=== PATIENT | female | born 1995 ===

== ENCOUNTER 2018-07-10 01:08 | Emergency (ER) | payer MEDICAID, OTHER ==
[2018-07-10 01:16] VITALS: BMI 20.5
[2018-07-10 01:41] VITALS: O2SAT 99
[2018-07-10] MEDS ORDERED: Sodium Chloride 0.9% 1,000 ML IV STA (03:09)
[2018-07-10 03:11] LABS: BASO # 0.01 K/mm3 (0.0-2.0); BASO % 0.2 % (0.0-3.0); EOS # 0.1 (0.0-0.7); EOS % 0.8 % (1.5-5.0); GRAN # 3.75 (1.4-6.5); GRAN % 59.2 % (50.0-68.0); HEMOGLOBIN 11.9 g/dL (12.0-16.0); LYMPH # 2.1 (1.2-3.4); MEAN CELL VOLUME 90.1 fl (80.0-105.0); MEAN CORPUSCULAR HEMOGLOBIN 30.9 pg (25.0-35.0); MEAN CORPUSCULAR HGB CONC 34.3 g/dl (31.0-37.0); MONO # 0.4 (0.1-0.6); MONO % 6.8 % (1.0-6.0); RBC 3.85 10^6/uL (3.5-6.1); RED CELL DISTRIBUTION WIDTH 12.5 % (11.5-14.5); WHITE BLOOD COUNT 6.3 10^3/ul (4.5-11.0)
--- NOTE | 2018-07-10 03:13 | ED PDOC ---
Arrival/HPI <Karson Crowe - Last Filed: 07/10/18 05:52> - General Historian: Patient, Partner - History of Present Illness Time/Duration: < week (2-3 days) Symptom Onset: Gradual Symptom Course: Worsening Quality: Tightness, Cramping Severity Level: 7 <Nilay Campos - Last Filed: 07/10/18 07:13> - General Chief Complaint: Female Genitourinary Time Seen by Provider: 07/10/18 01:31 - History of Present Illness Narrative History of Present Illness (Text): 07/10/18 02:18 CC: Abdominal pain and vomiting HPI: Ms. Correa is a 23 year old female with a past medical history of anemia ( no history of transfusions) who presents stating she had a positive home test. Patient reports a 4 day history of vomiting yellow mucus, minimal appetite, headaches, fatigue and crampy abdominal pain. Patient denies vaginal bleeding, spotting, chest pain, shortness of breath, back pain, dysuria , changes in urinary or bowel habits. Patient does not know how far along in the she is or date of her last menstrual period. Denies taking any vitamins. Patient denies care to this point as she recently moved here from [place]. Patient admits to daily marijuana use. (Nilay Campos) Past Medical History - Provider Review Nursing Documentation Reviewed: Yes - Travel History Have you recently traveled outside [place] w/in the past 3 mons?: No - Infectious Disease Hx of Infectious Diseases: None - Psychiatric Hx Substance Use: No <Nilay Campos - Last Filed: 07/10/18 07:13> Family/Social History - Physician Review Nursing Documentation Reviewed: Yes Family/Social History: Hypertension (mom) Smoking Status: Never Smoked Hx Alcohol Use: No Hx Substance Use: No <Nilay Campos - Last Filed: 07/10/18 07:13> Allergies/Home Meds <Karson Crowe - Last Filed: 07/10/18 05:52> <Nilay Campos - Last Filed: 07/10/18 07:13> Allergies/Adverse Reactions: Allergies No Known Allergies Allergy (Verified 07/10/18 01:16) Home Medications: Home Meds Medication Instructions Recorded Confirmed No Known Home Med 07/10/18 07/10/18 Review of Systems - Review of Systems Constitutional: Fatigue Eyes: Normal ENT: Normal Respiratory: Normal Cardiovascular: Normal Gastrointestinal: Abdominal Pain, Nausea, Vomiting, Appetite Changes, Food Intolerance Musculoskeletal: Normal Skin: Normal Neurological: Headache, Dizziness. absent: Focal Weakness <Nilay Campos - Last Filed: 07/10/18 07:13> Physical Exam Vital Signs Reviewed: Yes Temperature: Afebrile Blood Pressure: Hypotensive Pulse: Regular Respiratory Rate: Normal Appearance: Positive for: Well-Appearing, Non-Toxic, Uncomfortable Pain Distress: Mild Mental Status: Positive for: Alert and Oriented X 3 - Systems Exam Head: Present: Atraumatic, Normocephalic Pupils: Present: PERRL Extroacular Muscles: Present: EOMI Conjunctiva: Present: Normal Mouth: Present: Moist Mucous Membranes Neck: Present: Normal Range of Motion Respiratory/Chest: Present: Clear to Auscultation, Good Air Exchange. No: Respiratory Distress, Accessory Muscle Use, Wheezes, Rales Cardiovascular: Present: Regular Rate and Rhythm, Normal S1, S2, Peripheal Pulses Present. No: Murmurs Abdomen: Present: Tenderness (mild in RLQ and LLQ). No: Distention, Normal Bowel Sounds (hyperactive), Peritoneal Signs, Rebound, Guarding, McBurney's Point Tender, Rovsing's Sign Present, Mass/Organomegaly Back: No: CVA Tenderness, Midline Tenderness, Paraspinal Tenderness Upper Extremity: Present: Normal Inspection Lower Extremity: Present: Normal Inspection. No: Edema, CALF TENDERNESS Neurological: Present: GCS=15, CN II-XII Intact, Speech Normal Skin: Present: Warm, Dry, Normal Color. No: Rashes Psychiatric: Present: Alert, Oriented x 3 <Nilay Campos - Last Filed: 07/10/18 07:13> Vital Signs Temp Pulse Resp BP Pulse Ox 07/10/18 06:47 72 16 95/61 L 99 07/10/18 01:09 98.4 F 91 H 18 99/69 L 99 Medical Decision Making <Karson Crowe - Last Filed: 07/10/18 05:52> <Nilay Campos - Last Filed: 07/10/18 07:13> ED Course and Treatment: 07/10/18 05:52 Patient Seen with Resident: In agreement with resident note which contains more details about the patient. Patient seen and evaluated with resident. Came up with plan and treatment together.. (Karson Crowe) 07/10/18 02:16 Impression: 23 year old female with positive test who presents with vomiting and abdominal pain. Plan: CBC CMP Type and Screen UA B-HCG Transvaginal U/S NS bolus Tylenol 650 mg 07/10/18 04:51 UA shows trace blood, protein and ketones. B-HCG 66,387, which may correlate to 12-16 weeks gestation. Discussed results with patient. Awaiting Transvaginal U/S results. Follow up- recommended outpatient with OBGYN as soon as possible for evaluation of and to initiate care. 07/10/18 06:45 Transvaginal U/S completed. Likely abdominal pain in early . Recommend patient follow up with OBGYN (Dr. Botello) within 3 days for care. 07/10/18 07:00 EXAM: US First Trimester, Transabdominal US , Transvaginal CLINICAL HISTORY: 23 years old, female; Pain; Other: Pelvic; Gestational age or lmp: Unsure; ; Additional info: + preg test at home TECHNIQUE: Real-time transabdominal and transvaginal obstetrical ultrasound of the maternal pelvis and a first trimester with image documentation. Transvaginal imaging was used for better evaluation of the fetus and adnexa. COMPARISON: No relevant prior studies available. FINDINGS: Gestation: Single live intrauterine gestation. heart rate of 155 beats per minute. [place]-rump length of 1.7 cm, correlating with gestational age of 8 weeks 1 day. Uterus/cervix: No subchorionic hemorrhage. Closed cervix. Ovaries: Normal ovaries. No adnexal masses. Free fluid: No significant free fluid. IMPRESSION: 1. Single live intrauterine gestation. Reviewed record and follow up instructions with patient and significant other. They expressed understanding to need to follow up with OBGYN. Patient hemodynamically stable and ready for discharge home. (Nilay Campos) - Lab Interpretations Lab Results: 07/10/18 02:50 07/10/18 02:50 Lab Results 07/10/18 03:15: Blood Type A POSITIVE, Antibody Screen Negative, BBK History Checked No verified bt 07/10/18 02:50: Beta HCG, Quant 84412.00 H 07/10/18 02:50: Sodium 139, Potassium 3.7, Chloride 104, Carbon Dioxide 23, Anion Gap 15, BUN 12, Creatinine 0.5 L, Est GFR ( Amer) > 60, Est GFR ( Non-Af Amer) > 60, Random Glucose 87, Calcium 9.5, Total Bilirubin 0.3, AST 18, ALT 17, Alkaline Phosphatase 47, Total Protein 7.0, Albumin 4.2, Globulin 2.8, Albumin/Globulin Ratio 1.5 07/10/18 02:50: WBC 6.3, RBC 3.85, Hgb 11.9 L, Hct 34.7 L, MCV 90.1, MCH 30.9, MCHC 34.3, RDW 12.5, Plt Count 236, MPV 9.0, Gran % 59.2, Lymph % (Auto) 33.0, [place] % (Auto) 6.8 H, Eos % (Auto) 0.8 L, Baso % (Auto) 0.2, Gran # 3.75, Lymph # (Auto) 2.1, [place] # (Auto) 0.4, Eos # (Auto) 0.1, Baso # (Auto) 0.01 07/10/18 01:50: Urine Color Yellow, Urine Appearance Clear, Urine pH 6.0, Ur Specific [place] >= 1.030, Urine Protein Trace H, Urine Glucose (UA) Negative, Urine Ketones Trace H, Urine Blood Trace-intact H, Urine Nitrate Negative, Urine Bilirubin Negative, Urine Urobilinogen 1.0 H, Ur Leukocyte Esterase Negative, Urine RBC 0 - 2, Urine WBC 0 - 2, Ur Epithelial Cells 3 - 4, Urine Bacteria Small, Urine Other Mucus 07/10/18 01:50: Urine HCG, Qual Positive - RAD Interpretation Radiology Orders: 07/10/18 02:15 OB TRANSVAGINAL [US] Stat - Medication Orders Current Medication Orders: Discontinued Medications Acetaminophen (Tylenol 325mg Tab) 650 mg PO STAT STA Stop: 07/10/18 02:16 Last Admin: 07/10/18 03:28 Dose: 650 mg Sodium Chloride (Sodium Chloride 0.9%) 1,000 mls @ 999 mls/hr IV .Q1H1M STA Stop: 07/10/18 04:09 Last Admin: 07/10/18 03:28 Dose: 999 mls/hr eMAR Start Stop Document 07/10/18 03:28 IT (Rec: 07/10/18 03:28 IT [id number]) Intravenous Solution Start Date 07/10/18 Start Time 03:28 - PA / TERMINAL WORKER / Resident Statement / has reviewed & agrees with the documentation as recorded. / has examined the patient and agrees with the treatment plan. <Karson Crowe - Last Filed: 07/10/18 05:52> Disposition/Present on Arrival <Karson Crowe - Last Filed: 07/10/18 05:52> - Present on Arrival Any Indicators Present on Arrival: No History of DVT/PE: No History of Uncontrolled Diabetes: No Urinary Catheter: No History of Decub. Ulcer: No History Surgical Site Infection Following: None - Disposition Have Diagnosis and Disposition been Completed?: Yes Disposition Time: 07:03 Patient Plan: Discharge <Nilay Campos - Last Filed: 07/10/18 07:13> - Disposition Diagnosis: Disposition: HOME/ ROUTINE Condition: IMPROVED Discharge Instructions (ExitCare): Medications and , Care, - The Third Month, - The Fourth Month Print Language: YORUBA Additional Instructions: Please follow up with Dr. Botello (OBGYN) within 3 days for care. Please continue to have proper fluid and food intake with full meals as tolerated. Should symptoms worsen, please return to nearest emergency department. VASU CORREA, thank you for letting us take care of you today. Your provider was Karson Crowe MD and you were treated for ABD PAIN. The emergency medical care you received today was directed at your acute symptoms. If you were prescribed any medication, please fill it and take as directed. It may take several days for your symptoms to resolve. Return to the Emergency Department if your symptoms worsen, do not improve, or if you have any other problems. Please contact your doctor or call one of the physicians/clinics you have been referred to that are listed on the Patient Visit Information form that is included in your discharge packet. Bring any paperwork you were given at discharge with you along with any medications you are taking to your follow up visit. Our treatment cannot replace ongoing medical care by a primary care provider outside of the emergency department. Thank you for allowing the [facility] team to be part of your care today. If you had an X-Ray or CT scan: A Radiologist will review the ED reading if any change in treatment is needed we will contact you. If you had a blood, urine, or wound culture: It will take several days for the results, if any change in treatment is needed we will contact you. If you had an STI test: It will take 48 hours for the results. Please call after 1 week if you have not heard back. Referrals: Osmar Botello DO [Staff Provider] - Follow up with primary Forms: [employer] (Danish)
[2018-07-10 03:19] LABS: ALB/GLOB RATIO 1.5 (1.1-1.8); ALBUMIN 4.2 g/dL (3.0-4.8); ALT/SGPT 17 U/L (7-56); AST/SGOT 18 U/L (14-36); BLOOD UREA NITROGEN 12 mg/dL (7-21); CALCIUM 9.5 mg/dL (8.4-10.5); GFR NON-AFRICAN AMERICAN > 60
[2018-07-10 03:30] LABS: URINE APPEARANCE CLEAR (CLEAR); URINE BILIRUBIN NEGATIVE (NEGATIVE); URINE BLOOD TRACE-INTACT (NEGATIVE); URINE COLOR YELLOW (YELLOW); URINE GLUCOSE (UA) NEGATIVE (NEGATIVE); URINE LEUKOCYTE ESTERASE NEGATIVE Leu/uL (NEGATIVE); URINE PROTEIN TRACE mg/dL (<30 mg/dL)
[2018-07-10 04:15] LABS: URINE BACTERIA SMALL (NEG); URINE RBC 0 - 2 /hpf (0-2); URINE WBC 0 - 2 /hpf (0-6)
[2018-07-10 06:47] VITALS: BP 95/61; PULSE 72
[2018-07-10 07:31] VITALS: RESP 18; TEMP 98.6
--- NOTE | 2018-07-12 10:08 | US ---
Date of service: 07/10/2018 PROCEDURE: OB Pelvic Ultrasound HISTORY: preg test at home COMPARISON: None available. TECHNIQUE: Transvaginal pelvic ultrasound was performed. FINDINGS: UTERUS: Single live intrauterine gestation. CRL measures 1.70 cm equivalent to 8 weeks and 1 day of gestational age. Yolk sac is identified. age (Ultrasound estimated): 8 weeks and 1 day Date of delivery (Ultrasound estimated) : 02/18/2019 Heart rate: 155 bpm. Margarita-gestational hemorrhage: None. Measures 10.0 x 5.8 x 6.9 cm. Normal in size and appearance. No fibroid or other mass lesion seen. CERVIX: Long and closed. No cervical abnormality seen. RIGHT OVARY: Measures 2.7 x 1.9 x 2.8 cm. No mass. Normal flow. LEFT OVARY: Measures 2.8 x 1.4 x 2.6 cm. No mass. Normal flow. FREE FLUID: None. OTHER FINDINGS: None. IMPRESSION: Single live intrauterine gestation with mean gestational age of 8 weeks and 1 day. Estimated date of delivery by ultrasound is 02/18/2019. A preliminary report was provided by [employer].
== END 2018-07-10 07:30 | disposition home or self-care (01) ==
LOC: ED 01:08
DX: O26.891 Other specified pregnancy related conditions, first trimester (principal); Z3A.08 8 weeks gestation of pregnancy
CPT/HCPCS: 76817; 80053; 81001; 84702; 84703; 85025; 86850; 86900; 99283; J7030

== ENCOUNTER 2018-07-29 15:19 | Emergency (ER) | payer MEDICAID, OTHER ==
[2018-07-29 15:19] VITALS: BMI 20.5
[2018-07-29 15:35] VITALS: TEMP 98.8
--- NOTE | 2018-07-29 16:05 | ED PDOC ---
Arrival/HPI - General Chief Complaint: Female Genitourinary Time Seen by Provider: 07/29/18 15:59 Historian: Patient - History of Present Illness Narrative History of Present Illness (Text): 07/29/18 16:04 23 year old female, with past medical history of anemia, with 10 weeks gestation, presents to the Emergency department complaining of vaginal bleeding since prior to arrival. Patient states she was shopping when she realized she was mildly bleeding prompting her to present to the Emergency department for medical evaluation. Patient informs associated mild abdominal pain but denies any other medical complaints. Patient denies any fever, chills, nausea, vomiting, diarrhea, chest pain, shortness of breath, neck pain, back pain, headache, dizziness or any other complaints. Patient states she is scheduled to see an OBGYN in a month and has not seen one in the past. Time/Duration: Prior to Arrival Symptom Onset: Gradual Symptom Course: Unchanged Activities at Onset: Light Context: Other (Shopping) Past Medical History - Provider Review Nursing Documentation Reviewed: Yes - Infectious Disease Hx of Infectious Diseases: None - Cardiac Hx Cardiac Disorders: No - Pulmonary Hx Respiratory Disorders: Yes Hx Asthma: Yes - Neurological Hx Neurological Disorder: No - HEENT Hx HEENT Disorder: No - Renal Hx Renal Disorder: No - Endocrine/Metabolic Hx Endocrine Disorders: No - Hematological/Oncological Hx Blood Disorders: Yes Hx Anemia: Yes - Integumentary Hx Dermatological Disorder: No - Musculoskeletal/Rheumatological Hx Musculoskeletal Disorders: No - Gastrointestinal Hx Gastrointestinal Disorders: No - Genitourinary/Gynecological Hx Genitourinary Disorders: No - Psychiatric Hx Psychophysiologic Disorder: Yes Hx Anxiety: Yes Hx Substance Use: No Family/Social History - Physician Review Nursing Documentation Reviewed: Yes Family/Social History: No Known Family HX Smoking Status: Never Smoked Hx Alcohol Use: No Hx Substance Use: No Allergies/Home Meds Allergies/Adverse Reactions: Allergies No Known Allergies Allergy (Verified 07/29/18 15:30) Home Medications: Home Meds Medication Instructions Recorded Confirmed No Known Home Med 07/10/18 07/29/18 Review of Systems - Physician Review All systems were reviewed & negative as marked: Yes - Review of Systems Constitutional: absent: Fevers Respiratory: absent: SOB, Cough Cardiovascular: absent: Chest Pain Gastrointestinal: absent: Abdominal Pain, Diarrhea, Nausea, Vomiting Genitourinary Female: Vaginal Bleeding. absent: Other Musculoskeletal: absent: Back Pain Neurological: absent: Headache, Dizziness Physical Exam Vital Signs Reviewed: Yes Vital Signs Temp Pulse Resp BP Pulse Ox 07/29/18 15:30 98.8 F 89 16 99/64 L 96 Temperature: Afebrile Blood Pressure: Hypotensive Pulse: Regular Respiratory Rate: Normal Appearance: Positive for: Well-Appearing, Non-Toxic, Comfortable Pain Distress: None Mental Status: Positive for: Alert and Oriented X 3 - Systems Exam Head: Present: Atraumatic, Normocephalic Pupils: Present: PERRL Extroacular Muscles: Present: EOMI Conjunctiva: Present: Normal Mouth: Present: Moist Mucous Membranes Neck: Present: Normal Range of Motion Respiratory/Chest: Present: Clear to Auscultation, Good Air Exchange. No: Respiratory Distress, Accessory Muscle Use Cardiovascular: Present: Regular Rate and Rhythm, Normal S1, S2. No: Murmurs Abdomen: No: Tenderness, Distention, Peritoneal Signs Back: Present: Normal Inspection Upper Extremity: Present: Normal Inspection. No: Cyanosis, Edema Lower Extremity: Present: Normal Inspection. No: Edema Neurological: Present: GCS=15, CN II-XII Intact, Speech Normal Skin: Present: Warm, Dry, Normal Color. No: Rashes Psychiatric: Present: Alert, Oriented x 3, Normal Insight, Normal Concentration Medical Decision Making ED Course and Treatment: 07/29/18 16:02 Impression: 23 year old female presents to the Emergency department complaining of vaginal bleeding. Differential Diagnosis included but are not limited to: Miscarriage Plan: -- Labs -- Urinalysis -- Transvaginal US -- Reassess and disposition Prior Visits: Notes and results from previous visits were reviewed. Progress Notes: 07/29/18 18:32 Transvaginal US reviewed by radiologist, shows: Findings: There is a single intrauterine fetus present. The gestational sac measures 4.7 cm and is compatible with a gestational age of 9 weeks 2 days. The crown-rump length measures 4.7 cm and is compatible with a gestational age of 11 weeks 3 days. There is heart motion which measured 146 BPM. The right ovary measures 2.9 x 1.9 x 3.1 cm. The left ovary is not visualized. Blood flow is demonstrated to the right ovary. Cervix length measures approximately 4.0 cm. Impression: Live single intrauterine with estimated gestational age 9 weeks 2 days by gestational sac calculation and 11 weeks 3 days by crown-rump length calculation. heart rate 146 bpm. Advise an anomaly screen at 16-18 weeks gestational age - RAD Interpretation Radiology Orders: 07/29/18 16:02 TRANSVAGINAL [US] Stat - Scribe Statement The provider has reviewed the documentation as recorded by the Scribe Deepa Lantigua. Provider Scribe Attestation: All medical record entries made by the Scribe were at my direction and personally dictated by me. I have reviewed the chart and agree that the record accurately reflects my personal performance of the history, physical exam, medical decision making, and the department course for this patient. I have also personally directed, reviewed, and agree with the discharge instructions and disposition. Disposition/Present on Arrival - Present on Arrival History of DVT/PE: No History of Uncontrolled Diabetes: No Urinary Catheter: No History of Decub. Ulcer: No History Surgical Site Infection Following: None - Disposition Diagnosis: Threatened miscarriage Disposition: HOME/ ROUTINE Patient Problems: Current Active Problems Problem Status Onset Threatened miscarriage Acute Condition: STABLE Discharge Instructions (ExitCare): Threatened Miscarriage (DC) Additional Instructions: return to er with worsening symptoms or concerns. please followup with obgyn. Referrals: [facility] [Outside] - Follow up with primary [facility] [place] [Outside] - Follow up with primary Noel Elaine MD [Staff Provider] - Follow up with primary FAMILY PROVIDER,NO [Primary Care Provider] - Follow up with primary Forms: [employer] (Macedonian)
[2018-07-29 16:30] LABS: BASO # 0.01 K/mm3 (0.0-2.0); BASO % 0.2 % (0.0-3.0); EOS % 0.3 % (1.5-5.0); GRAN # 4.38 (1.4-6.5); GRAN % 70.2 % (50.0-68.0); HEMOGLOBIN 10.8 g/dL (12.0-16.0); LYMPH # 1.4 (1.2-3.4); LYMPH % 22.4 % (22.0-35.0); MEAN CELL VOLUME 90.7 fl (80.0-105.0); MEAN CORPUSCULAR HEMOGLOBIN 30.6 pg (25.0-35.0); MEAN CORPUSCULAR HGB CONC 33.8 g/dl (31.0-37.0); MEAN PLATELET VOLUME 8.8 fl (7.0-11.0); MONO # 0.4 (0.1-0.6); MONO % 6.9 % (1.0-6.0); RBC 3.53 10^6/uL (3.5-6.1); RED CELL DISTRIBUTION WIDTH 12.7 % (11.5-14.5); WHITE BLOOD COUNT 6.2 10^3/ul (4.5-11.0)
[2018-07-29 16:33] LABS: HCG,QUALITATIVE URINE POSITIVE (NEGATIVE); URINE APPEARANCE CLEAR (CLEAR); URINE BILIRUBIN NEGATIVE (NEGATIVE); URINE BLOOD MODERATE (NEGATIVE); URINE COLOR YELLOW (YELLOW); URINE GLUCOSE (UA) NEGATIVE (NEGATIVE); URINE LEUKOCYTE ESTERASE NEGATIVE Leu/uL (NEGATIVE); URINE PROTEIN TRACE mg/dL (<30 mg/dL)
[2018-07-29 16:37] LABS: URINE BACTERIA NEG (NEG); URINE WBC NEGATIVE /hpf (0-6)
[2018-07-29 16:40] LABS: INR 1.07; PARTIAL THROMBOPLASTIN TIME 29.1 Seconds (25.1-36.5); PROTHROMBIN TIME 12.2 SECONDS (9.4-12.5)
[2018-07-29 16:49] LABS: ALB/GLOB RATIO 1.2 (1.1-1.8); ALBUMIN 3.7 g/dL (3.0-4.8); ALT/SGPT 17 U/L (7-56); AST/SGOT 18 U/L (14-36); BLOOD UREA NITROGEN 10 mg/dL (7-21); CALCIUM 9.2 mg/dL (8.4-10.5); GFR NON-AFRICAN AMERICAN > 60
--- NOTE | 2018-07-29 18:37 | US ---
Date of service: 07/29/18 Ob transvaginal ultrasound Indication: Vaginal bleeding and Comparison: Ob transvaginal ultrasound performed 07/10/18 Technique: Transvaginal pelvic ultrasound Findings: There is a single intrauterine fetus present. The gestational sac measures 4.7 cm and is compatible with a gestational age of 9 weeks 2 days. The crown-rump length measures 4.7 cm and is compatible with a gestational age of 11 weeks 3 days. There is heart motion which measured 146 BPM. The right ovary measures 2.9 x 1.9 x 3.1 cm. The left ovary is not visualized. Blood flow is demonstrated to the right ovary. Cervix length measures approximately 4.0 cm. Impression: Live single intrauterine with estimated gestational age 9 weeks 2 days by gestational sac calculation and 11 weeks 3 days by crown-rump length calculation. heart rate 146 bpm. Advise an anomaly screen at 16-18 weeks gestational age
[2018-07-29 19:33] VITALS: BP 110/72; PULSE 86; RESP 18; O2SAT 98
== END 2018-07-29 19:34 | disposition home or self-care (01) ==
LOC: ED 15:19
DX: O20.0 Threatened abortion (principal); Z3A.11 11 weeks gestation of pregnancy